=== PATIENT | female | born 1995 | race American Indian/Alaskan Native ===

== ENCOUNTER 2018-03-02 23:24 | Emergency (ER) | payer OTHER ==
[2018-03-02 19:25] VITALS: BMI 23.6
[2018-03-03] MEDS ORDERED: Lactated Ringer's 1,000 ML IV SCH (00:45)
--- NOTE | 2018-03-03 09:11 | OBHP ---
Datetime: 03/03/2018 00:14 IP Adm Impression: , intrauterine IP Admit Plan: Observation/Evaluation; Discharge home Admit Comment, IP Provider: 22 y/o at EGA 31 weeks by LMP with CARY , who pres ents to the EDOB sent from [facility] with of cramping pelvic pain and thigh discomfort t hat started yesterday after work, patient states she is feeling occasional CONTX and she is concern. Patient denies vaginal bleeding, LOF, RADER, CP, blurry vision, SOB, fevers, chills, N or Vomiting. Josseline ent reports FM. ROS: All systems reviewed and found unremarkable, except as per HPI. PMHx: Denies. FMHx: Denies. SOCHx: Denies ETOH, drug use, or smoking. Allergies: Lactose Meds: PNVit Labs from [facility] reviewed: UA +LE A/P 22 y/o at EGA 31 weeks with c/o occasional cramping pelvic pain, Pelvic exam by Attending Dr Martin, Cervix closed. UA + for leukocyte esterase consistent with possible UTI. Patient will be D/C home with Macrobid 100 PO q12h x 7 days. INstructed to f/u in 2 to 3 days with your doctor provider. Case discussed with attending Dr Bianchi. dOell Vines MD PGY1 Extremities - PN: Normal Lungs - PN: Normal Heart - PN: Normal HEENT - PN: Normal General - PN: Normal Comments, ACOG Physical Exam: Pelvic exam by Dr Bianchi. EGA AdmitDate IP: 31.3 Vital Signs Provider: Reviewed; Within Normal Limits IP Chief Complaint: Signs/symptoms UTI
[2018-03-03 11:09] VITALS: BP 116/73; PULSE 88
== END 2018-03-03 02:30 | disposition home or self-care (01) ==
LOC: H.EROB2 23:24
DX: O26.93 Pregnancy related conditions, unspecified, third trimester (principal); R10.2 Pelvic and perineal pain; Z3A.31 31 weeks gestation of pregnancy
CPT/HCPCS: 99283; J7120

== ENCOUNTER 2018-05-03 22:36 | Emergency (ER) | payer OTHER ==
[2018-04-07 10:17] VITALS: BMI 23.6
[2018-05-04 05:47] VITALS: BP 114/63; PULSE 82; RESP 17; TEMP 97.8
== END 2018-05-04 00:30 | disposition home or self-care (01) ==
LOC: H.EROB2 22:36
DX: O36.8130 Decreased fetal movements, third trimester, not applicable or unspecified (principal); Z3A.40 40 weeks gestation of pregnancy

== ENCOUNTER 2018-05-07 01:04 | Inpatient (IN) | payer OTHER ==
[2018-05-07 01:48] VITALS: BMI 25.6
[2018-05-07] MEDS ORDERED: Lactated Ringer's 1,000 ML IV ONE (02:22)
[2018-05-07] MEDS ORDERED: Oxytocin 30 UNIT 30 UNITS/500 ML BAG IV ONE ×5 (02:26→03:15)
[2018-05-07] MEDS ORDERED: OXYTOCIN/0.9 % NS 20 UNIT/1,000 ML BAG IV SCH (02:30)
--- NOTE | 2018-05-07 02:50 | OBHP ---
Datetime: 05/07/2018 02:48 IP Adm Impression: Term, intrauterine IP Admit Plan: Admit to unit; Initiate labor protocol Admit Comment, IP Provider: 22 yo G1 at 40+2 wks w/ EDC 05/05/2018 by LMP , c/w 7+ wk u/s who presen ts w/ painful ctxns that started around 11 pm. Pt's mom reports that she saturated 2 pads this am w/ a clear mucous d/c and felt trickling earlier. Pt's mom reports that she has has a little spotting and pt reports movement. All other systems reviewed and negative. UDS was positive for Cannab inoid on 09/23/2017. Pt started her PN care w/ Dr. Janis Martínez and transferred her care to Dr. Lal. On 03/29/2018, GBS was negative PMH: Healthy, h/o asthma and lactose intolerance PSH: None Meds: None All: NKDA Social [employer] hx: menarche at 11 yo, reg periods, pt denies h/o STDs and abn paps Fam hx: M-MS, HTN, M and P GMs- breast cancer, MGF esophageal cancer, P great GF lung cancer Soc hx: pt denies tobacco, alcohol and illicit drug use PN labs: 09/23/2017 GC/Chl neg 10/03/2017 O+, Ab -, CF neg, UDS + Cannabinoid, FX neg, Hgb electrophoresis nl, HbsAg neg, HIV neg, RPR neg, Rubella Immune, SMA neg 01/17/2018 GC/Chl neg, pap neg 02/01/2018 Finger stick glucose 83 03/29/2018 RPR neg, HIV neg, GBS neg PE: AFVSS Gen'l pt appears in pain during the ctxns Heart: RRR Chest: lungs CTA b/l Abd: soft, NT , gravid Ext: NT, no edema Spec: mucus w/ blood, nitrazine positive VE: 4/ 80/-1 w/ BBOW at 2 am EFM: as above [place]: as above A/P: 22 yo G1 at 40+2 wks in labor. FHT reactive. GBS negative. Pt desires an epidural. Pt us ing nitrous oxide in the meantime. RN notified Dr. Lal. Extremities - PN: Normal Abdomen - PN: Normal Back - PN: Normal Lungs - PN: Normal Heart - PN: Normal Neurologic - PN: Normal HEENT - PN: Normal General - PN: Normal EGA AdmitDate IP: 40.5 IP Indication for Induction: Not Applicable IP Chief Complaint: Uterine contractions; Suspected ruptured membranes Dilatation, Provider: 4 Effacement, Provider: 80 Station, Provider: -1 Genitourinary Exam: Normal Datetime: 05/07/2018 02:10 FHR - Baseline A Provider: 120's Membranes, Provider: Bulging Contraction Comments Provider: Q2-5 Vital Signs Provider: Reviewed; Within Normal Limits NICHD Variability Prov Fetus A: Moderate 6-25bpm NICHD Accel Fetus A IP Provider: [id number] FHR Category Provider Fetus A: Category I NICHD Decel Fetus A IP Provider: None Datetime: 05/03/2018 23:34 Pelvic Type - PN: Adequate Breast - PN: Normal Thyroid - PN: Not Done DTRs - PN: Not Done
--- NOTE | 2018-05-07 02:54 | OBADHP ---
Datetime: 05/07/2018 02:48 Admit Comment, IP Provider: 22 yo G1 at 40+2 wks w/ EDC 05/05/2018 by LMP , c/w 7+ wk u/s who presen ts w/ painful ctxns that started around 11 pm. Pt's mom reports that she saturated 2 pads this am w/ a clear mucous d/c and felt trickling earlier. Pt's mom reports that she has has a little spotting and pt reports movement. All other systems reviewed and negative. UDS was positive for Cannab inoid on 09/23/2017. Pt started her PN care w/ Dr. Janis Martínez and transferred her care to Dr. Lal. 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, reg periods, pt denies h/o STDs and abn paps Fam hx: M-MS, HTN, M and P GMs- breast cancer, MGF esophageal cancer, P great GF lung cancer Soc hx: pt denies tobacco, alcohol and illicit drug use PN labs: 09/23/2017 GC/Chl neg 10/03/2017 O+, Ab -, CF neg, UDS + Cannabinoid, FX neg, Hgb electrophoresis nl, HbsAg neg, HIV neg, RPR neg, Rubella Immune, SMA neg 01/17/2018 GC/Chl neg, pap neg 02/01/2018 Finger stick glucose 83 03/29/2018 RPR neg, HIV neg, GBS neg PE: AFVSS Gen'l pt appears in pain during the ctxns Heart: RRR Chest: lungs CTA b/l Abd: soft, NT , gravid Ext: NT, no edema Spec: mucus w/ blood, nitrazine positive VE: 4/ 80/-1 w/ BBOW at 2 am EFM: as above [place]: as above A/P: 22 yo G1 at 40+2 wks in labor. FHT reactive. GBS negative. Pt desires an epidural. Pt us ing nitrous oxide in the meantime. RN notified Dr. Lal. Extremities - PN: Normal Abdomen - PN: Normal Back - PN: Normal Lungs - PN: Normal Heart - PN: Normal Neurologic - PN: Normal HEENT - PN: Normal General - PN: Normal FHR - Baseline A Provider: 120's Membranes, Provider: Bulging Contraction Comments Provider: Q2-5 Vital Signs Provider: Reviewed IP Chief Complaint: Uterine contractions; Suspected ruptured membranes NICHD Variability Prov Fetus A: Moderate 6-25bpm NICHD Accel Fetus A IP Provider: [id number] FHR Category Provider Fetus A: Category I NICHD Decel Fetus A IP Provider: None Dilatation, Provider: 4 Effacement, Provider: 80 Station, Provider: -1 Genitourinary Exam: Normal EGA AdmitDate IP: 40.5 IP Adm Impression: Term, intrauterine IP Admit Plan: Admit to unit; Initiate labor protocol Datetime: 05/03/2018 23:34 Pelvic Type - PN: Adequate Breast - PN: Normal Thyroid - PN: Not Done DTRs - PN: Not Done Datetime: 03/03/2018 00:14 Comments, ACOG Physical Exam: Pelvic exam by Dr Bianchi.
[2018-05-07] MEDS ORDERED: Fentanyl/Bupivacaine HCl 250 ML EPI ONE (03:03)
[2018-05-07 03:12] LABS: BASO # 0.1 K/uL (0.0-0.2); BASO % 0.9 % (0.0-2.0); EOS # 0.1 K/uL (0.0-0.7); EOS % 1.1 % (0.0-4.0); HEMOGLOBIN 11.1 g/dL (12.0-16.0); LYMPH % 22.1 % (20.0-40.0); MEAN CELL VOLUME 85.3 fl (81.0-99.0); MEAN CORPUSCULAR HEMOGLOBIN 27.6 pg (27.0-31.0); MEAN CORPUSCULAR HGB CONC 32.3 g/dL (33.0-37.0); MEAN PLATELET VOLUME 9.3 fl (7.2-11.7); MONO # 0.7 K/uL (0.0-0.8); MONO % 7.5 % (0.0-10.0); NEUT # 6.1 K/uL (1.8-7.0); NEUT % 68.4 % (50.0-75.0); NRBC % 0.2 % (0.0-0.0); RBC 4.04 Mil/uL (3.80-5.20); RED CELL DISTRIBUTION WIDTH 14.8 % (11.5-14.5); WHITE BLOOD COUNT 8.9 K/uL (4.8-10.8)
[2018-05-07] MEDS: Lactated Ringer's 1,000 ML IV SCH ×2 (04:00→12:15)
[2018-05-07 06:33] LABS: BARBITURATES, UR NEGATIVE (NEGATIVE); BENZODIAZEPINES, UR NEGATIVE (NEGATIVE); OPIATES, UR NEGATIVE (NEGATIVE); PHENCYCLIDINE, UR NEGATIVE (NEGATIVE)
[2018-05-07] MEDS ORDERED: Lidocaine 2% PF (10 ml) Amp ONE (08:39)
--- NOTE | 2018-05-07 09:35 | OBDS ---
MATERNAL INFORMATION Estimated Blood Loss (ml): 200ml Maternal Complications: None Provider Comments: delivery of live baby boy 9/9 clear fluid 1nuchal cord and compound present ation LABOR SUMMARY EDC: 05/05/2018 00:00 LABOR INFORMATION Reason for Induction: Not Applicable Group B Beta Strep: Negative Steroids Given: None Reason Steroids Not Administered: Not Applicable VAGINAL DELIVERY Episiotomy: None Laceration Extension: N/A Laceration Type: None Count Comment: correct
[2018-05-07] MEDS ORDERED: OXYTOCIN/0.9 % NS 20 UNIT/1,000 ML BAG IV ONE (09:36)
[2018-05-07] MEDS ORDERED: Acetaminophen-Codeine 300/30 mg Tab PO PRN (09:36)
[2018-05-07] MEDS ORDERED: Oxycodone/Acetaminophen 5/325 mg Tab PO PRN (09:36)
[2018-05-07] MEDS ORDERED: Benzocaine/Menthol SPRAY TOP PRN (09:36)
[2018-05-08] MEDS ORDERED: Acetaminophen-Codeine 300/30 mg Tab PO PRN (01:35)
[2018-05-08] MEDS ORDERED: Oxycodone/Acetaminophen 5/325 mg Tab PO PRN (01:35)
[2018-05-08] MEDS ORDERED: Benzocaine/Menthol SPRAY TOP PRN (01:35)
[2018-05-08 06:11] LABS: BASO # 0.1 K/uL (0.0-0.2); BASO % 0.8 % (0.0-2.0); EOS # 0.1 K/uL (0.0-0.7); EOS % 1.1 % (0.0-4.0); HEMOGLOBIN 9.7 g/dL (12.0-16.0); MEAN CELL VOLUME 85.7 fl (81.0-99.0); MEAN CORPUSCULAR HEMOGLOBIN 27.8 pg (27.0-31.0); MEAN CORPUSCULAR HGB CONC 32.4 g/dL (33.0-37.0); MEAN PLATELET VOLUME 8.8 fl (7.2-11.7); MONO # 0.6 K/uL (0.0-0.8); NEUT # 7.8 K/uL (1.8-7.0); NEUT % 73.1 % (50.0-75.0); NRBC % 0.1 % (0.0-0.0); RBC 3.49 Mil/uL (3.80-5.20); RED CELL DISTRIBUTION WIDTH 14.8 % (11.5-14.5); WHITE BLOOD COUNT 10.6 K/uL (4.8-10.8)
--- NOTE | 2018-05-08 07:46 | OBPPN ---
Datetime: 05/08/2018 07:43 PP Pain Prov: Within normal limits PP Pain Prov comment: No SOB, chest or leg pains PP Nausea Prov: Denies PP Flatus Prov: Yes PP Breasts Prov: Normal PP Lungs Prov: Normal PP Abdomen/Uterus Prov: Abnormal PP Vulva/Perineum Prov: Not Done PP CVA Tenderness Prov: Normal PP Extremities Prov: Normal PP C/S Incision Prov: Not Applicable PP Progress Prov: Normal PP Comments Phys Exam Prov: breast feeding bst not engorged NT; Abd soft ND, fundus firm below the u mb NT; Ext no calf tenderness. PP Impression Prov: Normal progression PP Plan Prov: Continue present management PP Progress Note Prov: OOB and ambulation, continue PP care. IP PP Procedures: None
[2018-05-08] MEDS ORDERED: Lansinoh for Breast Feeding Mothers TP PRN (16:26)
--- NOTE | 2018-05-08 18:05 | OBPPN ---
Datetime: 05/08/2018 18:02 PP Pain Prov: Within normal limits PP Nausea Prov: Denies PP Flatus Prov: Yes PP BM Prov: No PP Breasts Prov: Normal PP Heart Prov: Normal PP Lungs Prov: Normal PP Abdomen/Uterus Prov: Normal PP Lochia Prov: Normal PP Vulva/Perineum Prov: Normal PP CVA Tenderness Prov: Normal PP Extremities Prov: Normal PP Progress Prov: Normal PP Impression Prov: Normal progression PP Plan Prov: Continue present management PP Progress Note Prov: stable ppd1 no complaints continue present care IP PP Procedures: None Vital Signs Provider PP: Reviewed; Within Normal Limits
--- NOTE | 2018-05-09 11:34 | OBDCSUM ---
Datetime: 05/09/2018 11:30 Discharged to, Provider: Home Follow up at, Provider: [facility] Disch Instr Activity: Normal activity; Bedrest; May be up to bathroom; May be up for meals; May Show er Disch Instr Diet: Regular Discharge Instructions, Provider: Routine instructions given Discharge Diagnosis, Provider: Term Delivered Discharge Time: 05/09/2018 11:30 Follow up in weeks, Provider: 5-6 weeks in office Disch Referrals: None Disch Activity Restrictions: No exercising; No lifting; No driving; Minimize walking; Minimize stair -climbing; No sexual activity; Nothing in vagina - [place], tampons, douche Discharge Comment, Provider: ho home call office if any problem Contraception after Delivery: Undecided
[2018-05-09 19:01] VITALS: BP 115/68; PULSE 77; RESP 20; TEMP 98.4; O2SAT 99
== END 2018-05-09 14:00 | disposition home or self-care (01) | DRG 373 ==
LOC: H.EROB2 01:04 → H.L&D 02:22 → H.OB/GYN 13:00
PROVIDERS: ADMIT Specialist; ATTEND Specialist
PROC: 10E0XZZ Delivery of Products of Conception, External Approach (ICD-10-PCS; principal; 2018-05-07)
PROC: 4A1HXCZ Monitoring of Products of Conception, Cardiac Rate, External Approach (ICD-10-PCS; 2018-05-07)
DX: O48.0 Post-term pregnancy (principal); O32.6XX0 Maternal care for compound presentation, not applicable or unspecified; O69.81X0 Labor and delivery complicated by cord around neck, without compression, not applicable or unspecified; Z3A.40 40 weeks gestation of pregnancy; Z37.0 Single live birth; E73.9 Lactose intolerance, unspecified